=== PATIENT | female | born 1975 | race Caucasian/White ===

== ENCOUNTER 2018-10-10 15:40 | Emergency (ER) | payer OTHER ==
[~2018-10-10] VITALS: Ht 160 cm; Wt 128.6 kg
[~2018-10-10 15:40] MED LIST: ALBU8.5H8 IH; LEVO250 PO; PRED5 PO
[2018-10-10 16:05] VITALS: BP 150/94
== END 2018-10-10 18:13 | disposition left against medical advice (07) ==
LOC: EMS 15:45
DX: R06.02 Shortness of breath (principal); R07.9 Chest pain, unspecified; J45.909 Unspecified asthma, uncomplicated; F41.9 Anxiety disorder, unspecified; Z88.0 Allergy status to penicillin
CPT/HCPCS: 93005